=== PATIENT | male | born 1985 | race Asian ===

== ENCOUNTER 2022-03-07 13:50 | Emergency (ER) | payer MEDICAID, OTHER ==
[2022-03-07] MEDS ORDERED: Dexamethasone 10 MG/ML VIAL ONE (15:22)
== END 2022-03-07 15:30 | disposition home or self-care (01) ==
LOC: CSHERS 13:50
DX: H10.9 Unspecified conjunctivitis (principal); H66.92 Otitis media, unspecified, left ear
CPT/HCPCS: 99283; J1100

== ENCOUNTER 2022-06-16 12:16 | Emergency (ER) | payer OTHER ==
[2022-06-16 13:46] LABS: SARS-CoV-2 NAA Rapid Test Not Detected (NotDetected)
== END 2022-06-16 14:04 | disposition home or self-care (01) ==
LOC: CSHERS 12:16
DX: R05.9 Cough, unspecified (principal); Z20.822 Contact with and (suspected) exposure to COVID-19
CPT/HCPCS: 71045

== ENCOUNTER 2022-10-14 15:20 | Emergency (ER) | payer OTHER ==
[2022-10-14] MEDS ORDERED: Ondansetron ODT 4 MG TAB ONE (16:47)
[2022-10-14] MEDS ORDERED: Dicyclomine 20 MG TAB ONE (16:49)
[2022-10-19 21:53] LABS: Campy jejuni + coli by PCR Negative (Negative); STEC Shiga Toxin 1+2 Negative (Negative); Salmonella spp. by PCR Negative (Negative); Shigella spp + EIEC by PCR Negative (Negative)
== END 2022-10-14 17:28 | disposition home or self-care (01) ==
LOC: CSHERS 15:20
DX: K52.9 Noninfective gastroenteritis and colitis, unspecified (principal)
CPT/HCPCS: 87070; 87205; 87505; 99284; Q0162